=== PATIENT | female | born 1960 | race Asian ===

== ENCOUNTER → 2020-05-31 | Outpatient (CLI) | payer MEDICARE | END | disposition home or self-care (01) | LOC: STAR 11:52 | PROVIDERS: ATTEND Family Medicine | DX: Z20.822 Contact with and (suspected) exposure to COVID-19 (principal); M54.2 Cervicalgia; M54.9 Dorsalgia, unspecified; M54.5 Low back pain | CPT/HCPCS: 87635 ==

== ENCOUNTER → 2020-05-31 | Outpatient (CLI) | payer MEDICARE | END | disposition home or self-care (01) | LOC: RAD 11:59 | PROVIDERS: ATTEND Physician Assistant | DX: M47.815 Spondylosis without myelopathy or radiculopathy, thoracolumbar region (principal); M43.27 Fusion of spine, lumbosacral region; M41.85 Other forms of scoliosis, thoracolumbar region | CPT/HCPCS: 72040; 72072; 72082; 72100 ==

== ENCOUNTER 2020-06-05 10:19 | Day surgery (SDC) | payer MEDICARE ==
[~2020-06-05] VITALS: Ht 149.9 cm; Wt 82.0 kg
[2020-06-05] MEDS ORDERED: OXYC5CAP2 PO (11:18)
[2020-06-05] MEDS ORDERED: ALPR2TAB2 PO (11:18)
[2020-06-05 11:43] VITALS: BP 141/91
[2020-06-05] MEDS ORDERED: CHLORHEXIDINE 15 ML UDC ONE (11:53)
[2020-06-05] MEDS ORDERED: LACTATED RINGERS 1,000 ML IV SCH (12:00)
[2020-06-05] MEDS ORDERED: CHLORHEXIDINE 15 ML UDC MM ONE (12:00)
[2020-06-05] MEDS ORDERED: PLEASE ENTER HEIGHT AND WEIGHT MC SCH (12:00)
[2020-06-05] MEDS ORDERED: GADOTERATE 10 MMOL/20ML SYR ONE (14:30)
[2020-06-05] MEDS ORDERED: OXYcodone 5 MG/5 ML ORAL.SOL UDC ONE (15:59)
[2020-06-05] MEDS ORDERED: LABETALOL 5MG/ML, 20ML IV PRN (16:00)
[2020-06-05] MEDS ORDERED: METOCLOPRAMIDE 5 MG/ML, 2ML IV PRN (16:00)
[2020-06-05] MEDS ORDERED: ALBUTEROL SULFATE 2.5 MG/3 ML NPPB PRN (16:00)
[2020-06-05] MEDS ORDERED: DIAZEPAM 5 MG/ML, 2ML IV PRN ×3 (16:00→16:30)
[2020-06-05] MEDS ORDERED: MEPERIDINE/PF 25MG/0.5ML IVPush PRN (16:00)
[2020-06-05] MEDS ORDERED: PROMETHAZINE 25 MG/ML, 1ML IV PRN (16:00)
[2020-06-05] MEDS ORDERED: OXYcodone 5 MG/5 ML ORAL.SOL UDC PO PRN (16:00)
[2020-06-05] MEDS ORDERED: hydrALAzine 20 MG/ML, 1ML IV PRN (16:00)
[2020-06-05] MEDS ORDERED: KETOROLAC 30 MG/1 ML IV PRN (16:00)
[2020-06-05] MEDS ORDERED: HYDROmorphone 1 MG/ML, 1ML INJ IV PRN (16:00)
[2020-06-05] MEDS ORDERED: FENTANYL PF 100 MCG/2ML IV PRN (16:00)
[2020-06-05] MEDS ORDERED: ONDANSETRON 2MG/ML, 2ML IVPush PRN (16:00)
[2020-06-05] MEDS ORDERED: ROCURONIUM 10MG/ML,5ML ONE (16:27)
[2020-06-05] MEDS ORDERED: SUCCINYLCHOLINE 20 MG/ML, 10ML ONE (16:27)
[2020-06-05] MEDS ORDERED: SUGAMMADEX 200 MG/2 ML IVPush ONE (16:27)
[2020-06-05] MEDS ORDERED: ONDANSETRON 2MG/ML, 2ML ONE (16:27)
[2020-06-05] MEDS ORDERED: PROPOFOL 10 MG/ML, 20ML ONE (16:27)
== END 2020-06-05 17:20 | disposition home or self-care (01) ==
LOC: OUT 10:19 → EDSTATUS 12:45 → OUT 17:20
PROVIDERS: ATTEND Physician Assistant
DX: M54.2 Cervicalgia (principal); M48.02 Spinal stenosis, cervical region; M25.78 Osteophyte, vertebrae; Z98.1 Arthrodesis status
CPT/HCPCS: 72156; 72157; 72158; A9575; J0330; J2405; J2704; J7120